=== PATIENT | male | born 1950 | race Caucasian/White ===

== ENCOUNTER 2016-03-23 11:59 | Day surgery (SDC) | payer MEDICARE, OTHER ==
[2016-03-23] MEDS ORDERED: LIDOCAINE 2% MDV (20MG/ML) 20ML VIAL IV ONE (15:48)
[2016-03-23] MEDS ORDERED: PROPOFOL 10 MG/ML VIAL IV ONE (15:48)
[2016-03-23] MEDS ORDERED: MIDAZOLAM HCL 2MG/2ML VIAL IV ONE (15:48)
--- NOTE | 2016-03-25 07:00 | Operative Note ---
DATE OF SURGERY: OPERATION: COLONOSCOPY. PREOPERATIVE DIAGNOSIS: Screening, average risk. POSTOPERATIVE DIAGNOSIS: Sigmoid diverticulosis. PREPARATION QUALITY: Good. ESTIMATED BLOOD LOSS: None. SPECIMENS: None. PROCEDURE: After informed consent was obtained from the patient, he was placed in the left lateral decubitus position in the endoscopy suite, sedated and monitored by the department of anesthesia. Digital rectal exam was unremarkable. A well-lubricated [id number] colonoscope was inserted into the rectum and advanced to the cecum. The cecum was noted by the ileocecal valve and appendiceal orifice. The cecum, ascending colon, transverse colon, descending colon, sigmoid colon, and rectum were unremarkable other than sigmoid diverticula. No polyps, mass, lesions, or inflammation seen. Forward and J-turn views of the rectum and anorectum were unremarkable. The endoscope was straightened, the rectal ampulla deflated, and the endoscope was removed. RECOMMENDATIONS: The patient should follow a high-fiber diet. I would also recommend that he use a fiber supplement. He should undergo repeat exam in 10 years or sooner should symptoms warrant. As always, thank you for allowing me to participate in the healthcare of your patients. Obdulio Costa DO CC: Suzy MCKEON
== END 2016-03-23 13:40 | disposition home or self-care (01) ==
LOC: HOP 11:59
PROVIDERS: ATTEND Internal Medicine Gastroenterology
DX: Z12.11 Encounter for screening for malignant neoplasm of colon (principal); K57.30 Diverticulosis of large intestine without perforation or abscess without bleeding
CPT/HCPCS: 00810; G0121